=== PATIENT | female | born 1950 | race Caucasian/White ===

== ENCOUNTER → 2017-11-24 | Outpatient (CLI) | payer MEDICARE ==
[~2017-11-24] MED LIST: OMNIPAQUE 350 MG/ML, 100ML BOTTLE ONE
== END | disposition home or self-care (01) ==
LOC: RAD 15:06
PROVIDERS: ATTEND Nurse Practitioner Family
DX: E03.4 Atrophy of thyroid (acquired) (principal); E07.89 Other specified disorders of thyroid
CPT/HCPCS: 70491; Q9967

== ENCOUNTER → 2017-12-09 | Outpatient (CLI) | payer MEDICARE | END | disposition home or self-care (01) | LOC: CFH 12:46 | PROVIDERS: ATTEND Nurse Practitioner Family | DX: M16.12 Unilateral primary osteoarthritis, left hip (principal); M70.62 Trochanteric bursitis, left hip; S73.192A Other sprain of left hip, initial encounter; X58.XXXA Exposure to other specified factors, initial encounter; Y93.89 Activity, other specified; Y92.89 Other specified places as the place of occurrence of the external cause; Y99.8 Other external cause status ==

== ENCOUNTER 2020-01-16 09:19 | Emergency (ER) | payer MEDICARE ==
[~2020-01-16] VITALS: Ht 162.6 cm; Wt 88.0 kg
--- NOTE | 2020-01-16 09:40 | NUR ---
assumed care of pt. pt BIB family c/o low back pain radiating to L leg x2-3 weeks. pt denies injury. ambulatory with pain. pt reports that she has been using a cane at home to get around. CMS of L foot intact. MICAELA HUMPHRIES at bedside for eval
[2020-01-16] MEDS ORDERED: DIAZEPAM 5 MG TABLET PO ONE (10:00)
[2020-01-16] MEDS ORDERED: KETOROLAC 30 MG/1 ML IM ONE (10:00)
--- NOTE | 2020-01-16 10:22 | NUR ---
pt sitting up in position of comfort. warm blankets given pt son at bedside
[2020-01-16] MEDS ORDERED: DIAZEPAM 5 MG TABLET ONE (10:40)
[2020-01-16] MEDS ORDERED: KETOROLAC 30 MG/1 ML ONE (10:41)
--- NOTE | 2020-01-16 11:00 | NUR ---
pt has been medicated per order. resting in position of comfort pt advised not to drive after valium. pt verbalized understanding pt son at bedside to drive her home
[2020-01-16 11:16] VITALS: BP 189/81
--- NOTE | 2020-01-16 11:19 | NUR ---
this pt was D/C by another RN
== END 2020-01-16 11:19 | disposition home or self-care (01) ==
LOC: ED 11:13
DX: S39.012A Strain of muscle, fascia and tendon of lower back, initial encounter (principal); M51.36 Other intervertebral disc degeneration, lumbar region; I10 Essential (primary) hypertension; X58.XXXA Exposure to other specified factors, initial encounter; Y93.89 Activity, other specified; Y92.89 Other specified places as the place of occurrence of the external cause; Y99.8 Other external cause status
CPT/HCPCS: 72110; 96372; 99283; J1885

== ENCOUNTER → 2020-04-30 | Outpatient (CLI) | payer MEDICARE ==
[~2020-04-30] MED LIST changes: +ASPI81TA45 PO; +CALC-112 PO; +FISH1CAP PO; +LEVO150T5 PO; +LOSA25TA25 PO; +MELA3TAB31 PO; +MULT-658 PO; -OMNIPAQUE 350 MG/ML, 100ML BOTTLE ONE; +RED600TA PO
[2020-04-30 10:50] LABS: MICROSCOPIC AUTO
[2020-04-30 11:00] LABS: ALBUMIN 3.9 g/dL (3.4-5.0); ANION GAP 5 mmol/L (5-15); CALCIUM 9.4 mg/dL (8.5-10.1); CHLORIDE 107 mmol/L (98-107)
[2020-04-30 11:01] LABS: INTERNATIONAL NORMALIZED RATIO 1.01 (0.93-1.1); PROTHROMBIN TIME 10.8 Seconds (9.6-11.5)
[2020-04-30 11:03] LABS: BASOPHILS % (AUTO) 1 % (0-1); EOSINOPHILS % (AUTO) 2 % (1-7); LYMPHOCYTES % (AUTO) 31 % (22-44); MEAN CORPUSCULAR HEMOGLOBIN 31.5 pg (27.0-34.8); MEAN CORPUSCULAR HGB CONC 32.8 g/dL (32.4-35.8); MEAN PLATELET VOLUME 8.8 fL (7.4-10.4); MONOCYTES % (AUTO) 6 % (2-9); NEUTROPHILS % (AUTO) 61 % (42-75); PLATELET COUNT 370 x10^3/uL (130-400); RED BLOOD COUNT 4.53 x10^6/uL (3.82-5.3); RED CELL DISTRIBUTION WIDTH 13.7 % (9.6-15.2)
[2020-04-30 11:04] LABS: ALANINE AMINOTRANSFERASE 37 U/L (12-78); ALKALINE PHOSPHATASE 108 U/L (45-117); BILIRUBIN,TOTAL 0.4 mg/dL (0.2-1.0); CREATININE 0.65 mg/dL (0.55-1.02); MD NO; TOTAL PROTEIN 8.2 g/dL (6.4-8.2)
== END | disposition home or self-care (01) ==
LOC: STAR 09:16
PROVIDERS: ATTEND Orthopaedic Surgery
DX: Z01.812 Encounter for preprocedural laboratory examination (principal); Z20.822 Contact with and (suspected) exposure to COVID-19; M54.5 Low back pain
CPT/HCPCS: 71046; 80053; 81001; 85025; 85610; 85730; 87086; 93005; U0003

== ENCOUNTER 2020-05-01 08:50 | Outpatient (CLI) | payer MEDICARE ==
[2020-05-07] MEDS ORDERED: OXYC5TAB98 PO (08:06)
[2020-05-07] MEDS ORDERED: SENN-211 PO (08:06)
[2020-05-07] MEDS ORDERED: ONDA4TAB7 PO (08:06)
[2020-05-07] MEDS ORDERED: CYCL10TA2 PO (08:06)
[2020-05-07] MEDS ORDERED: ACET-1600 PO (08:06)
== END 2020-05-01 23:59 | disposition home or self-care (01) ==
LOC: STAR 08:50
PROVIDERS: ATTEND Orthopaedic Surgery
DX: Z01.818 Encounter for other preprocedural examination (principal); M54.5 Low back pain
CPT/HCPCS: 36415; 82306